=== PATIENT | female | born 1995 | race African-American/Black ===

== ENCOUNTER 2016-10-14 01:08 | Emergency (ER) | payer MEDICAID, MEDICARE, OTHER ==
[~2016-10-14] VITALS: Ht 160 cm; Wt 63.0 kg
[~2016-10-14 01:08] MED LIST: BACT800T5 PO
--- NOTE | 2016-10-14 01:24 | PD ---
HPI Chief Complaint: Cold / Flu Symptoms Time Seen by Provider: 01:22 Travel History International Travel<30 days: No Contact w/Intl Traveler<30days: No Traveled to known affect area: No History of Present Illness HPI 21-year-old black female presents to emergency Department with complaints of flu symptoms since . She states that she went to a [facility] on Sunday and she was given prednisone. She states that they looked in her throat but did not do a strep or flu swabs. She has had subjective fever and chills, headache, congestion, cough, sore throat, myalgias, arthralgias and general malaise. She denies any nausea vomiting. No abdominal pain or diarrhea. No dysuria frequency. The rashes or lesions PFSH Past Medical History Cardiovascular Problems: Yes (TACHYCARDIA) Diminished Hearing: No Pneumonia: Yes ( INFANT) Tetanus Vaccination: < 5 Years ?: Not LMP: 09/23/16 : 0 Para: 0 Miscarriage: 0 : 0 Past Surgical History Surgical History: No Previous Surgery Social History Alcohol Use: Yes (OCCASIONAL) Tobacco Use: No Substance Use: Yes (MARIJUANA OCCASIONALL IN PAST) Allergies-Medications (Allergen,Severity, Reaction): Coded Allergies: No Known Allergies (Unverified , 10/14/16) Reported Meds & Prescriptions Reported Meds & Active Scripts Active Bactrim DS (Sulfamethoxazole-Trimethoprim DS) 1 Tab Tab 1 Tab PO BID Review of Systems Except as stated in HPI: all other systems reviewed are Neg Physical Exam Narrative GENERAL: Well-developed, well-nourished in no acute distress. Nontoxic appearing. HEAD: Normocephalic, atraumatic. EYES: Pupils equal round and reactive. Extraocular motions intact. No scleral icterus. No injection or drainage. ENT: TMs clear without erythema. The external auditory canals clear. Nose: clear . Posterior pharynx is pink and moist. No tonsillar edema or exudate. Uvula midline. Airway patent. NECK: Trachea midline.Supple, nontender, moves head freely. No central bony tenderness or spasm. CARDIOVASCULAR: Regular rate and rhythm without murmurs, gallops, or rubs. RESPIRATORY: Clear to auscultation. Breath sounds equal bilaterally. No wheezes , rales, or rhonchi. GASTROINTESTINAL: Abdomen soft, non-tender, nondistended. No hepato-splenomegaly , or palpable masses. No guarding. EXTREMITIES: No clubbing, cyanosis, or edema. No joint tenderness, effusion, or edema noted. BACK: Nontender without deformity or crepitance. No flank tenderness. Data Data Last Documented VS Vital Signs Date Time Temp Pulse Resp B/P Pulse Ox O2 Delivery O2 Flow Rate FiO2 10/14/16 01:35 97.8 94 16 143/73 97 Room Air Orders Group A Rapid Strep Screen (10/14/16 01:21) Ibuprofen (Motrin) (10/14/16 01:30) Strep Culture (Group A) (10/14/16 01:34) MDM Medical Decision Making Medical Screen Exam Complete: Yes Emergency Medical Condition: Yes Medical Record Reviewed: Yes Interpretation(s) Rapid strep: Negative Differential Diagnosis MDM: High Differential diagnoses: Strep throat, viral pharyngitis, mono, influenza Narrative Course Patient given Motrin 600 mg by mouth Strep is negative. This influenza-like illness Diagnosis Primary Impression: Influenza-like illness Patient Instructions: General Instructions Additional Instructions: Rest. Increase fluids. Tylenol and Advil. Robitussin-DM. Followup with your Dr. in one week. Return to the ER for any problems. Med/Other Pt SpecificInfo: No Meds Exist/No RX given Disposition: DISCHARGE HOME Condition: Stable Saran Mayo Oct 14, 2016 01:24
[2016-10-14] MEDS ORDERED: IBUPROFEN 600 MG TAB PO ONE (01:30)
[2016-10-14 01:35] VITALS: BP 143/73; PULSE 94; RESP 16; TEMP 97.8; O2SAT 97
== END 2016-10-14 02:09 | disposition home or self-care (01) ==
LOC: NETRI 01:08
DX: J10.1 Influenza due to other identified influenza virus with other respiratory manifestations (principal)
CPT/HCPCS: 87081; 87880; 99283

== ENCOUNTER 2016-12-25 01:32 | Emergency (ER) | payer SELFPAY ==
[~2016-12-25] VITALS: Ht 160 cm; Wt 63.0 kg
[2016-12-25 01:34] VITALS: BP 129/61; PULSE 77; RESP 16; TEMP 98.7; O2SAT 100
--- NOTE | 2016-12-25 03:10 | RADRPT ---
EXAM DATE/TIME: 12/25/2016 03:05 [place] COMPARISON: No previous studies available for comparison. INDICATIONS : Pt has shortness of breath and cough. MEDICAL HISTORY : None. SURGICAL HISTORY : None. ENCOUNTER: Initial ACUITY: 1 day PAIN SCORE: 7/10 LOCATION: Bilateral chest FINDINGS: The lungs are clear without infiltrate, nodule, or mass. There is no appreciable pleural effusion fo r technique. Heart and mediastinum are unremarkable. CONCLUSION: No acute cardiopulmonary disease. Thomas King MD on December 25, 2016 at 3:08 Board Certified Radiologist. This report was verified electronically.
--- NOTE | 2016-12-25 03:24 | PD ---
HPI Chief Complaint: Cold / Flu Symptoms Time Seen by Provider: 02:48 Travel History International Travel<30 days: No Contact w/Intl Traveler<30days: No Traveled to known affect area: No History of Present Illness HPI The patient is a 21 year old female who presents to the [facility] emergency department with a history of chest pain that began at 11:30 PM today. It is sharp in character and worse with taking a deep breath. She reports that it feels like it is difficult to take a deep breath. She reports that she has associated upper back pain. She denies having any cough, congestion, fever or chills associated with this. She denies having any lower extremity edema, calf pain, or erythema. She denies having any recent prolonged travel in a car or by plane. 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 The patient denies any neck pain, abdominal pain, vomiting, diarrhea, urinary symptoms, or neurologic symptoms. LMP: 11/26/2016. She denies any possibility of being . [facility] Past Medical History Narrative Medical The patient's past medical history is significant for tachycardia 1x in 2005, pneumonia as an , febrile seizures as a child. 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 Social History Alcohol Use: Yes (OCCASIONAL) Tobacco Use: No Substance Use: Yes Allergies-Medications (Allergen,Severity, Reaction): Coded Allergies: No Known Allergies (Unverified , 12/25/16) Reported Meds & Prescriptions Reported Meds & Active Scripts Active Naproxen EC (Naproxen) 375 Mg Tabdr 375 Mg PO BID PRN Review of Systems Except as stated in HPI: all other systems reviewed are Neg General / Constitutional: No: Fever Eyes: No: Visual changes HENT: No: Headaches Cardiovascular: Positive: Chest Pain or Discomfort, No: Dyspnea on exertion Respiratory: No: Cough, Shortness of Breath Gastrointestinal: No: Nausea, Vomiting, Diarrhea, Abdominal Pain Genitourinary: No: Dysuria Musculoskeletal: Positive: Myalgias, Pain Skin: No Rash Neurologic: No: Weakness Psychiatric: No: Depression Endocrine: No: Polydipsia Hematologic/Lymphatic: No: Easy Bruising Physical Exam Narrative General: The patient is a well-developed well-nourished female in no acute distress. Head and Neck exam: Head is normocephalic atraumatic. Eyes: EOMI, pupils are equal round and reactive to light. Nose: Midline septum with pink mucous membranes Mouth: Dentition unremarkable. Moist mucus membranes. Posterior oropharynx is not erythematous. No tonsillar hypertrophy. Uvula midline. Airway patent. Neck: No palpable lymphadenopathy. No nuchal rigidity. No thyromegaly. Cardiovascular: Regular rate and rhythm without murmurs, gallops, or rubs. The patient has chest wall pain on palpation along the upper left sternal border to the ribs. There is no step-off or crepitus. No erythema or ecchymosis. No flail segment. Lungs: Clear to auscultation bilaterally. No wheezes, rhonchi, or rales. Abdomen: Soft, without tenderness to palpation in all 4 quadrants of the abdomen. No guarding, rebound, or rigidity. Normal bowel sounds are audible. No tenderness on palpation of McBurney's point. Negative Villa's sign. Extremities: No clubbing, cyanosis, or edema. 2+ pulses in all 4 extremities. Back: No spinous process tenderness to palpation. No costovertebral angle tenderness to palpation. The patient reports tenderness on palpation along the medial aspect of the scapula on the left side. Neurologic Exam: Grossly nonfocal. Skin Exam: No rash noted. Intact skin that is warm and dry. Data Data Last Documented VS Vital Signs Date Time Temp Pulse Resp B/P Pulse Ox O2 Delivery O2 Flow Rate FiO2 12/25/16 01:34 98.7 77 16 129/61 100 Room Air Orders Chest, Pa & Lat (12/25/16 02:48) Electrocardiogram (12/25/16 02:48) Ibuprofen (Motrin) (12/25/16 03:30) MDM Medical Decision Making Medical Screen Exam Complete: Yes Emergency Medical Condition: Yes Medical Record Reviewed: Yes Interpretation(s) Last Impressions Chest X-Ray 12/25/16 4790 Signed Impressions: Service Date/Time: Sunday, December 25, 2016 03:05 - CONCLUSION: No acute cardiopulmonary disease. Thomas King MD Differential Diagnosis Costochondritis, versus musculoskeletal strain, versus pleurisy, versus pulmonary embolism, versus pneumothorax, versus acute coronary syndrome. Narrative Course During the course of the patients emergency department visit, the patients history, examination, and differential diagnosis were reviewed with the patient. The patient had IV access obtained and blood work sent for analysis. The patient was placed on a supervisor reinforced steel placing with oximetry and blood pressure monitoring. An EKG was done on arrival. The patient's EKG shows a sinus bradycardia with sinus arrhythmia heart rate of 58, QRS duration 85 ms, QTC 403 ms, no acute ST segment elevation or depression, T waves inverted in V1. The patient was initially provided ibuprofen 400 mg by mouth 1. Radiology studies were reviewed and remarkable for a chest x-ray that shows no acute abnormality. The patient has a low probability for PE and he fills all 8 criteria of the Perc rule, therefore no further testing is indicated for evaluation for pulmonary embolism. I suspect that the patient's symptoms are related to musculoskeletal strain versus costochondritis. The patient was given a prescription for an anti-inflammatory pain medication. The patient is resting comfortably and feels better, is alert and in no distress. The patients results and examination findings were discussed with the patient. The repeat examination is unremarkable and benign. The history, exam, diagnostic testing, and current condition do not suggest any significant pathology to warrant further testing, continued ED treatment, admission, or surgical evaluation at this point. The vital signs have been stable. The patient does not have uncontrollable pain, intractable vomiting, or other significant symptoms. The patient's condition is stable and appropriate for discharge. The patient will pursue further outpatient evaluation with a primary care physician or other designated or consulting physician as indicated in the discharge instructions. The patient expressed understanding and was agreeable with this plan. Diagnosis Primary Impression: Musculoskeletal back pain Additional Impression: Musculoskeletal chest pain Referrals: Primary Care Physician 3 days Patient Instructions: General Instructions, Musculoskeletal Pain (ED) Med/Other Pt SpecificInfo: Prescription(s) given Scripts Naproxen DR (Naproxen EC)375 Mg Qtrsh056 Mg PO BID PRN (PAIN GREATER THAN 5) # 10 TAB Ref 0 Prov:Elise Grayson MD 12/25/16 Disposition: 01 DISCHARGE HOME Condition: Stable Elise Grayson MD Dec 25, 2016 03:24
[2016-12-25] MEDS ORDERED: NAPR-239 PO (03:29)
[2016-12-25] MEDS ORDERED: IBUPROFEN 400 MG TAB PO ONE (03:30)
--- NOTE | 2016-12-25 11:29 | EKG ---
Date Performed: 12/25/2016 Time Performed: 03:09:36 PTAGE: 21 years EKG: SINUS BRADYCARDIA WITH SINUS ARRHYTHMIA Since previous tracing, no significant change noted BORDERLINE ECG PREVIOUS TRACING : 03/05/2014 22.45 DOCTOR: Yvon Grayson Interpretating Date/Time 12/25/2016 11:27:31
== END 2016-12-25 03:58 | disposition home or self-care (01) ==
LOC: NEPE 01:32
DX: M54.89 Other dorsalgia (principal); R07.89 Other chest pain
CPT/HCPCS: 71020; 93005; 99283

== ENCOUNTER 2017-05-17 11:06 | Emergency (ER) | payer OTHER ==
[~2017-05-17] VITALS: Ht 160 cm; Wt 64.0 kg
[~2017-05-17 11:06] MED LIST changes: -BACT800T5 PO; +NAPR375T4 PO
[2017-05-17 11:07] VITALS: BP 129/99; PULSE 16; PULSE 84; RESP 14; TEMP 98.8; O2SAT 95
[2017-05-17] MEDS ORDERED: SODIUM CHLOR 0.9% 1000 ML INJ 1,000 ML IV SCH (11:22)
--- NOTE | 2017-05-17 11:25 | PD ---
HPI Chief Complaint: GI Complaint Time Seen by Provider: 11:18 Travel History International Travel<30 days: No Contact w/Intl Traveler<30days: No Traveled to known affect area: No History of Present Illness HPI 21-year-old female presents to emergency department for evaluation of nausea and vomiting since yesterday morning. Patient states that prior evening she ate beef will and smother food at a Halloween green party. She is uncertain if this is what has made her sick. Denies fever but has felt chilled. No diarrhea. No hematemesis. No significant pain. Denies any chance of . No urinary symptoms. No other symptoms to report. PFSH Past Medical History Heart Rhythm Problems: Yes (tachycardia) Cardiovascular Problems: Yes (TACHYCARDIA) Diminished Hearing: No Pneumonia: Yes ( INFANT) ?: Not LMP: 04/26/17 : 0 Para: 0 Miscarriage: 0 : 0 Social History Alcohol Use: Yes (OCCASIONAL) Tobacco Use: No Substance Use: Yes Allergies-Medications (Allergen,Severity, Reaction): Coded Allergies: No Known Allergies (Verified Adverse Reaction, Unknown, 05/17/17) Reported Meds & Prescriptions Reported Meds & Active Scripts Active Phenergan (Promethazine HCl) 25 Mg Tablet 25 Mg PO Q6H PRN Omeprazole 40 Mg Cap 40 Mg PO DAILY Review of Systems Except as stated in HPI: all other systems reviewed are Neg Physical Exam Narrative GENERAL: Well-nourished female patient, no acute distress SKIN: Focused skin assessment warm/dry. HEAD: Atraumatic. Normocephalic. EYES: Pupils equal and round. No scleral icterus. No injection or drainage. ENT: No nasal bleeding or discharge. Mucous membranes pink and moist. NECK: Trachea midline. No JVD. CARDIOVASCULAR: Regular rate and rhythm. No murmur appreciated. RESPIRATORY: No accessory muscle use. Clear to auscultation. Breath sounds equal bilaterally. GASTROINTESTINAL: Abdomen soft, non-tender, nondistended. Hepatic and splenic margins not palpable. MUSCULOSKELETAL: No obvious deformities. No clubbing. No cyanosis. No edema. NEUROLOGICAL: Awake and alert. No obvious cranial nerve deficits. Motor grossly within normal limits. Normal speech. PSYCHIATRIC: Appropriate mood and affect; insight and judgment normal. Data Data Last Documented VS Vital Signs Date Time Temp Pulse Resp B/P (MAP) Pulse Ox O2 Delivery O2 Flow Rate FiO2 05/17/17 14:38 97.8 76 17 120/81 (94) 99 05/17/17 11:30 Room Air Orders Orders Complete Blood Count With Diff (05/17/17 11:22) Comprehensive Metabolic Panel (05/17/17 11:22) Lipase (05/17/17 11:22) Urinalysis - C+S If Indicated (05/17/17 11:22) Iv Access Insert/Monitor (05/17/17 11:22) Ecg Monitoring (05/17/17 11:22) Oximetry (05/17/17 11:22) Ondansetron Inj (Zofran Inj) (05/17/17 11:30) Sodium Chlor 0.9% 1000 Ml Inj (Ns 1000 M (05/17/17 11:22) Sodium Chloride 0.9% Flush (Ns Flush) (05/17/17 11:30) Ed Urine Pregnancytest Poc (05/17/17 11:22) Ed Discharge Order (05/17/17 13:55) Labs Laboratory Tests Test 05/17/17 11:30 05/17/17 12:41 White Blood Count 7.7 TH/MM3 Red Blood Count 5.32 MIL/MM3 Hemoglobin 13.1 GM/DL Hematocrit 40.6 % Mean Corpuscular Volume 76.4 FL Mean Corpuscular Hemoglobin 24.7 PG Mean Corpuscular Hemoglobin Concent 32.4 % Red Cell Distribution Width 15.2 % Platelet Count 187 TH/MM3 Mean Platelet Volume 10.2 FL Neutrophils (%) (Auto) 74.1 % Lymphocytes (%) (Auto) 16.9 % Monocytes (%) (Auto) 8.5 % Eosinophils (%) (Auto) 0.2 % Basophils (%) (Auto) 0.3 % Neutrophils # (Auto) 5.7 TH/MM3 Lymphocytes # (Auto) 1.3 TH/MM3 Monocytes # (Auto) 0.7 TH/MM3 Eosinophils # (Auto) 0.0 TH/MM3 Basophils # (Auto) 0.0 TH/MM3 CBC Comment DIFF FINAL Differential Comment Urine Color YELLOW Urine Turbidity CLEAR Urine pH 5.5 Urine Specific [place] 1.029 Urine Protein TRACE mg/dL Urine Glucose (UA) NEG mg/dL Urine Ketones 10 mg/dL Urine Occult Blood NEG Urine Nitrite NEG Urine Bilirubin NEGATIVE Urine Urobilinogen LESS THAN 2.0 MG/DL Urine Leukocyte Esterase NEG Urine RBC 7 /hpf Urine WBC 1 /hpf Urine Squamous Epithelial Cells 2 /hpf Urine Bacteria RARE /hpf Urine Mucus MOD /lpf Microscopic Urinalysis Comment CULT NOT INDICATED Blood Urea Nitrogen 12 MG/DL Creatinine 0.71 MG/DL Random Glucose 72 MG/DL Total Protein 9.4 GM/DL Albumin 3.5 GM/DL Calcium Level 8.5 MG/DL Alkaline Phosphatase 104 U/L Aspartate Amino Transf (AST/SGOT) 17 U/L Alanine Aminotransferase (ALT/SGPT) 17 U/L Total Bilirubin 1.1 MG/DL Sodium Level 141 MEQ/L Potassium Level 4.2 MEQ/L Chloride Level 105 MEQ/L Carbon Dioxide Level 26.1 MEQ/L Anion Gap 10 MEQ/L Estimat Glomerular Filtration Rate 123 ML/MIN Lipase 58 U/L [facility] Medical Decision Making Medical Screen Exam Complete: Yes Emergency Medical Condition: Yes Medical Record Reviewed: Yes Differential Diagnosis Gastritis versus gastroenteritis versus viral syndrome versus influenza Narrative Course 21-year-old female presents to emergency department for evaluation of nausea and vomiting since yesterday morning. Patient appears without distress. Vital signs are stable. Abdominal exam is benign. Patient is given Zofran and IV normal saline bolus. Laboratory Tests Test 05/17/17 11:30 05/17/17 12:41 White Blood Count 7.7 TH/MM3 Red Blood Count 5.32 MIL/MM3 Hemoglobin 13.1 GM/DL Hematocrit 40.6 % Mean Corpuscular Volume 76.4 FL Mean Corpuscular Hemoglobin 24.7 PG Mean Corpuscular Hemoglobin Concent 32.4 % Red Cell Distribution Width 15.2 % Platelet Count 187 TH/MM3 Mean Platelet Volume 10.2 FL Neutrophils (%) (Auto) 74.1 % Lymphocytes (%) (Auto) 16.9 % Monocytes (%) (Auto) 8.5 % Eosinophils (%) (Auto) 0.2 % Basophils (%) (Auto) 0.3 % Neutrophils # (Auto) 5.7 TH/MM3 Lymphocytes # (Auto) 1.3 TH/MM3 Monocytes # (Auto) 0.7 TH/MM3 Eosinophils # (Auto) 0.0 TH/MM3 Basophils # (Auto) 0.0 TH/MM3 CBC Comment DIFF FINAL Differential Comment Urine Color YELLOW Urine Turbidity CLEAR Urine pH 5.5 Urine Specific [place] 1.029 Urine Protein TRACE mg/dL Urine Glucose (UA) NEG mg/dL Urine Ketones 10 mg/dL Urine Occult Blood NEG Urine Nitrite NEG Urine Bilirubin NEGATIVE Urine Urobilinogen LESS THAN 2.0 MG/DL Urine Leukocyte Esterase NEG Urine RBC 7 /hpf Urine WBC 1 /hpf Urine Squamous Epithelial Cells 2 /hpf Urine Bacteria RARE /hpf Urine Mucus MOD /lpf Microscopic Urinalysis Comment CULT NOT INDICATED Blood Urea Nitrogen 12 MG/DL Creatinine 0.71 MG/DL Random Glucose 72 MG/DL Total Protein 9.4 GM/DL Albumin 3.5 GM/DL Calcium Level 8.5 MG/DL Alkaline Phosphatase 104 U/L Aspartate Amino Transf (AST/SGOT) 17 U/L Alanine Aminotransferase (ALT/SGPT) 17 U/L Total Bilirubin 1.1 MG/DL Sodium Level 141 MEQ/L Potassium Level 4.2 MEQ/L Chloride Level 105 MEQ/L Carbon Dioxide Level 26.1 MEQ/L Anion Gap 10 MEQ/L Estimat Glomerular Filtration Rate 123 ML/MIN Lipase 58 U/L Upon reassessment, patient states that she feels much better. This is likely a gastritis. Patient is counseled on care. She is encouraged to follow-up with primary care provider and return immediately with any acute worsening of symptoms. Diagnosis Primary Impression: Gastritis Qualified Codes: K29.00 - Acute gastritis without bleeding Additional Impression: Nausea & vomiting Qualified Codes: R11.2 - Nausea with vomiting, unspecified Referrals: Primary Care Physician Patient Instructions: Diet for Stomach Ulcers and Gastritis (ED), General Instructions Additional Instructions: [place] diet Start with clear liquid diet advance as tolerated Return immediately to the emergency department with any acute worsening of symptoms Med/Other Pt SpecificInfo: Prescription(s) given Scripts Promethazine (Phenergan) 25 Mg Tablet 25 MG PO Q6H Y for NAUSEA OR VOMITING, #10 TAB 0 Refills Prov: Nikky Chapman 05/17/17 Omeprazole (Omeprazole) 40 Mg Cap 40 MG PO DAILY, #14 CAP 0 Refills Prov: Nikky Chapman 05/17/17 Disposition: 01 DISCHARGE HOME Condition: Stable Nikky Chapman May 17, 2017 11:25
[2017-05-17 11:30] VITALS: PULSE 82; RESP 16; O2SAT 99
[2017-05-17] MEDS ORDERED: ONDANSETRON HCL 4 MG/2 ML VIAL IVP ONE (11:30)
[2017-05-17] MEDS ORDERED: SODIUM CHLORIDE 0.9% FLUSH 10 ML FLUSH IV FLUSH PRN (11:30)
[2017-05-17 12:17] LABS: AUTOMATED NEUTROPHIL # 5.7 TH/MM3 (1.8-7.7); BASOPHIL % 0.3 % (0.0-2.0); EOSINOPHIL % 0.2 % (0.0-4.0); HEMATOCRIT 40.6 % (35.0-46.0); HEMO FLAGS DIFF FINAL; LYMPH % 16.9 % (9.0-44.0); LYMPHOCYTE # 1.3 TH/MM3 (1.0-4.8); MEAN CELL VOLUME 76.4 FL (80.0-100.0); MEAN CORPUSCULAR HEMOGLOBIN 24.7 PG (27.0-34.0); MEAN CORPUSCULAR HGB CONC 32.4 % (32.0-36.0); MONO % 8.5 % (0.0-8.0); NEUT % 74.1 % (16.0-70.0); PLATELET COUNT 187 TH/MM3 (150-450); RED BLOOD COUNT 5.32 MIL/MM3 (4.00-5.30); RED CELL DISTRIBUTION WIDTH 15.2 % (11.6-17.2); WHITE BLOOD COUNT 7.7 TH/MM3 (4.0-11.0)
[2017-05-17 12:34] LABS: BACTERIA, URINE RARE /hpf; BLOOD, URINE NEG (NEG); COMMENT (UR) CULT NOT INDICATED; CULTURE IF INDICATED CULT NOT INDICATED; GLUCOSE,URINE NEG (NEG); KETONE, URINE 10 mg/dL (NEG); MUCUS URINE MOD /lpf (OCC); NITRITE,URINE NEG (NEG); PH, URINE 5.5 (5.0-8.5); SQUAMOUS EPITHELIAL CELL URINE 2 /hpf (0-5); URINE COLOR YELLOW (YELLW/STRAW)
[2017-05-17 12:42] LABS: ALKALINE PHOSPHATASE 104 U/L (45-117); TOTAL BILIRUBIN ADULT 1.1 MG/DL (0.2-1.0)
[2017-05-17 13:45] LABS: ALT (GPT) 17 U/L (10-53); AST (GOT) 17 U/L (15-37); BLOOD UREA NITROGEN 12 MG/DL (7-18); CHLORIDE 105 MEQ/L (98-107); GLOMERULAR FILTRATION RATE 123 ML/MIN (>89); POTASSIUM 4.2 MEQ/L (3.5-5.1); SODIUM (NA) 141 MEQ/L (136-145)
[2017-05-17 13:51] LABS: ANION GAP 10 MEQ/L (5-15); BICARBONATE 26.1 MEQ/L (21.0-32.0)
[2017-05-17] MEDS ORDERED: OMEP40CA2 PO (13:59)
[2017-05-17] MEDS ORDERED: PROM25TA10 PO (13:59)
[2017-05-17 14:38] VITALS: BP 120/81; TEMP 97.8
== END 2017-05-17 14:38 | disposition home or self-care (01) ==
LOC: NEPC 11:06
DX: K29.00 Acute gastritis without bleeding (principal); Z86.79 Personal history of other diseases of the circulatory system
CPT/HCPCS: 80053; 81001; 83690; 84703; 85025; 96361; 96374; 99284; J2405; J7030